=== PATIENT | female | born 1995 | race Caucasian/White ===

== ENCOUNTER → 2017-03-02 | Outpatient (REF) | payer OTHER ==
[~2017-03-02] MED LIST: BACT800T5 PO; PYRI1TAB5 PO
== END ==
LOC: M SFHCLERA 12:17
PROVIDERS: ATTEND Nurse Practitioner Family
DX: R53.81 Other malaise (principal)

== ENCOUNTER 2017-05-28 21:59 | Emergency (ER) | payer OTHER ==
[~2017-05-28] VITALS: Ht 157.5 cm; Wt 54.5 kg
[2017-05-28 23:01] LABS: CONTROL LINE UCG INT CTR LINE PRESENT
[2017-05-29] MEDS ORDERED: PYRI1TAB5 PO (01:38)
[2017-05-29] MEDS ORDERED: BACT800T5 PO (01:38)
[2017-05-29] MEDS ORDERED: BACTRIM 160MG/800MG DS TAB PO ONE (01:45)
[2017-05-29] MEDS ORDERED: PHENAZOPYRIDINE 100 MG TAB PO ONE (01:45)
[2017-05-29 02:00] VITALS: BP 115/65
== END 2017-05-29 02:03 | disposition home or self-care (01) ==
LOC: M ED 21:59
DX: N30.01 Acute cystitis with hematuria (principal)

== ENCOUNTER 2017-11-14 16:49 | Emergency (ER) | payer OTHER, SELFPAY ==
[2017-11-14 18:12] LABS: HEMATOCRIT 42.3 % (36.0-47.0); MEAN CORPUSCULAR HEMOGLOBIN 31.6 pg (27.0-33.0); MEAN CORPUSCULAR HGB CONC 35.5 g/dl (32.0-36.5); MEAN CORPUSCULAR VOLUME 89.2 fl (80.0-96.0); PLATELET COUNT, AUTOMATED 365 10^3/uL (150-450); RED BLOOD COUNT 4.74 10^6/uL (4.00-5.40); RED CELL DISTRIBUTION WIDTH 11.6 % (11.5-14.5); WHITE BLOOD COUNT 10.8 10^3/uL (4.0-10.0)
[2017-11-14 18:26] LABS: CONTROL LINE HCG INT CTR LINE PRESENT; HCG, SERUM QUALITATIVE NEGATIVE (NEGATIVE)
[2017-11-14 18:41] LABS: ALBUMIN 4.6 GM/DL (3.2-5.2); ALBUMIN/GLOBULIN RATIO 1.21 (1.00-1.93); ALKALINE PHOSPHATASE 66 U/L (45-117); ALT/SGPT 17 U/L (12-78); ANION GAP 8 MEQ/L (8-16); AST/SGOT 17 U/L (7-37); BILIRUBIN,DIRECT 0.2 MG/DL (0.0-0.2); BILIRUBIN,TOTAL 0.9 MG/DL (0.2-1.0); BLOOD UREA NITROGEN 12 MG/DL (7-18); CALCIUM LEVEL 9.4 MG/DL (8.5-10.1); CARBON DIOXIDE LEVEL 26 MEQ/L (21-32); CHLORIDE LEVEL 105 MEQ/L (98-107); CREATININE FOR GFR 0.76 MG/DL (0.55-1.30); GLOMERULAR FILTRATION RATE > 60.0 (>60); GLUCOSE, FASTING 72 MG/DL (70-100); SALICYLATE LEVEL < 1.7 MG/DL (5.0-30.0); SODIUM LEVEL 139 MEQ/L (136-145); THYROID STIMULATING HORMONE 0.875 uIU/ML (0.358-3.740); TOTAL PROTEIN 8.4 GM/DL (6.4-8.2)
[2017-11-14 18:42] LABS: ACETAMINOPHEN LEVEL < 2.0 UG/ML (10.0-30.0); ETHYL ALCOHOL (ETHANOL) < 0.003 % (0.000-0.010)
[2017-11-14 18:47] LABS: AMPHETAMINES LEVEL URINE NEGATIVE (NEGATIVE); BARBITURATES URINE NEGATIVE (NEGATIVE); BENZODIAZEPINES URINE NEGATIVE (NEGATIVE); CANNABINOIDS URINE NEGATIVE (NEGATIVE); COCAINE METABOLITE URINE NEGATIVE (NEGATIVE); METHADONE URINE NEGATIVE (NEGATIVE); OPIATES URINE NEGATIVE (NEGATIVE); PHENCYCLIDINE URINE NEGATIVE (NEGATIVE)
== END 2017-11-14 23:39 | disposition home or self-care (01) ==
LOC: M ED 16:49
DX: Z04.6 Encounter for general psychiatric examination, requested by authority (principal); F32.9 Major depressive disorder, single episode, unspecified; F90.9 Attention-deficit hyperactivity disorder, unspecified type; Z91.018 Allergy to other foods
CPT/HCPCS: 80320

== ENCOUNTER 2017-11-15 13:19 | Emergency (ER) | payer OTHER, SELFPAY ==
[2017-11-15 14:44] LABS: HEMOGLOBIN 15.2 g/dl (12.0-15.5); MEAN CORPUSCULAR HEMOGLOBIN 31.4 pg (27.0-33.0); MEAN CORPUSCULAR HGB CONC 35.3 g/dl (32.0-36.5); MEAN CORPUSCULAR VOLUME 88.8 fl (80.0-96.0); PLATELET COUNT, AUTOMATED 381 10^3/uL (150-450); RED BLOOD COUNT 4.84 10^6/uL (4.00-5.40); RED CELL DISTRIBUTION WIDTH 11.8 % (11.5-14.5); WHITE BLOOD COUNT 11.4 10^3/uL (4.0-10.0)
[2017-11-15 15:07] LABS: CONTROL LINE HCG INT CTR LINE PRESENT; HCG, SERUM QUALITATIVE NEGATIVE (NEGATIVE)
[2017-11-15 15:15] LABS: AMPHETAMINES LEVEL URINE NEGATIVE (NEGATIVE); BARBITURATES URINE NEGATIVE (NEGATIVE); BENZODIAZEPINES URINE NEGATIVE (NEGATIVE); CANNABINOIDS URINE NEGATIVE (NEGATIVE); COCAINE METABOLITE URINE NEGATIVE (NEGATIVE); METHADONE URINE NEGATIVE (NEGATIVE); OPIATES URINE NEGATIVE (NEGATIVE); PHENCYCLIDINE URINE NEGATIVE (NEGATIVE)
[2017-11-15 15:23] LABS: ACETAMINOPHEN LEVEL < 2.0 UG/ML (10.0-30.0); ALBUMIN 4.4 GM/DL (3.2-5.2); ALBUMIN/GLOBULIN RATIO 1.16 (1.00-1.93); ALKALINE PHOSPHATASE 65 U/L (45-117); ALT/SGPT 16 U/L (12-78); ANION GAP 6 MEQ/L (8-16); AST/SGOT 16 U/L (7-37); BILIRUBIN,DIRECT 0.2 MG/DL (0.0-0.2); BILIRUBIN,TOTAL 0.8 MG/DL (0.2-1.0); BLOOD UREA NITROGEN 10 MG/DL (7-18); CALCIUM LEVEL 9.3 MG/DL (8.5-10.1); CARBON DIOXIDE LEVEL 27 MEQ/L (21-32); CHLORIDE LEVEL 107 MEQ/L (98-107); CREATININE FOR GFR 0.77 MG/DL (0.55-1.30); ETHYL ALCOHOL (ETHANOL) < 0.003 % (0.000-0.010); GLOMERULAR FILTRATION RATE > 60.0 (>60); GLUCOSE, FASTING 98 MG/DL (70-100); POTASSIUM SERUM 3.7 MEQ/L (3.5-5.1); SALICYLATE LEVEL < 1.7 MG/DL (5.0-30.0); SODIUM LEVEL 140 MEQ/L (136-145); THYROID STIMULATING HORMONE 0.966 uIU/ML (0.358-3.740); TOTAL PROTEIN 8.2 GM/DL (6.4-8.2)
== END 2017-11-15 16:49 | disposition home or self-care (01) ==
LOC: M ED 13:19
DX: F43.0 Acute stress reaction (principal); F32.9 Major depressive disorder, single episode, unspecified
CPT/HCPCS: 80320

== ENCOUNTER 2017-12-12 15:20 | Inpatient (IN) | payer OTHER, SELFPAY ==
[2017-12-12 17:08] LABS: HEMATOCRIT 40.4 % (36.0-47.0); HEMOGLOBIN 14.2 g/dl (12.0-15.5); MEAN CORPUSCULAR HEMOGLOBIN 31.4 pg (27.0-33.0); MEAN CORPUSCULAR HGB CONC 35.1 g/dl (32.0-36.5); MEAN CORPUSCULAR VOLUME 89.4 fl (80.0-96.0); PLATELET COUNT, AUTOMATED 305 10^3/uL (150-450); RED BLOOD COUNT 4.52 10^6/uL (4.00-5.40); RED CELL DISTRIBUTION WIDTH 11.8 % (11.5-14.5); WHITE BLOOD COUNT 7.8 10^3/uL (4.0-10.0)
[2017-12-12 17:26] LABS: AMPHETAMINES LEVEL URINE NEGATIVE (NEGATIVE); BARBITURATES URINE NEGATIVE (NEGATIVE); BENZODIAZEPINES URINE NEGATIVE (NEGATIVE); CANNABINOIDS URINE NEGATIVE (NEGATIVE); COCAINE METABOLITE URINE NEGATIVE (NEGATIVE); METHADONE URINE NEGATIVE (NEGATIVE); OPIATES URINE NEGATIVE (NEGATIVE); PHENCYCLIDINE URINE NEGATIVE (NEGATIVE)
[2017-12-12 17:35] LABS: ALBUMIN 4.5 GM/DL (3.2-5.2); ALBUMIN/GLOBULIN RATIO 1.36 (1.00-1.93); ALKALINE PHOSPHATASE 62 U/L (45-117); ALT/SGPT 16 U/L (12-78); ANION GAP 7 MEQ/L (8-16); AST/SGOT 17 U/L (7-37); BILIRUBIN,DIRECT 0.2 MG/DL (0.0-0.2); BLOOD UREA NITROGEN 10 MG/DL (7-18); CALCIUM LEVEL 9.1 MG/DL (8.5-10.1); CARBON DIOXIDE LEVEL 26 MEQ/L (21-32); CHLORIDE LEVEL 107 MEQ/L (98-107); CREATININE FOR GFR 0.75 MG/DL (0.55-1.30); GLOMERULAR FILTRATION RATE > 60.0 (>60); GLUCOSE, FASTING 76 MG/DL (70-100); POTASSIUM SERUM 3.7 MEQ/L (3.5-5.1); SALICYLATE LEVEL < 1.7 MG/DL (5.0-30.0); SODIUM LEVEL 140 MEQ/L (136-145); THYROID STIMULATING HORMONE 0.615 uIU/ML (0.358-3.740); TOTAL PROTEIN 7.8 GM/DL (6.4-8.2)
[2017-12-12 17:58] LABS: ACETAMINOPHEN LEVEL < 2.0 UG/ML (10.0-30.0); ETHYL ALCOHOL (ETHANOL) < 0.003 % (0.000-0.010)
[2017-12-12 19:51] LABS: CONTROL LINE HCG INT CTR LINE PRESENT; HCG, SERUM QUALITATIVE NEGATIVE (NEGATIVE)
[2017-12-12] MEDS ORDERED: LORazepam 1 MG TAB PO (21:15)
[2017-12-12] MEDS ORDERED: ACETAMINOPHEN TAB 650MG DOSE (2X325MG) PO (21:15)
[2017-12-12] MEDS ORDERED: MAALOX 30 ML SUSP *UDC PO (21:15)
[2017-12-12] MEDS ORDERED: MOM 30ML SUSPENSION UDC PO (21:15)
[2017-12-12] MEDS ORDERED: traZODone 50 MG TAB PO (21:15)
[2017-12-13] MEDS: buPROPion **XL** TABLET 150MG (WELLBUTRIN XL) PO (10:34)
[2017-12-14] MEDS: buPROPion **XL** TABLET 150MG (WELLBUTRIN XL) PO (09:43)
== END 2017-12-14 13:15 | disposition home or self-care (01) | DRG 754 ==
LOC: M ED 15:20 → M ED INP 19:08 → M PSY 20:28
DX: F32.9 Major depressive disorder, single episode, unspecified (principal); Z91.018 Allergy to other foods

== ENCOUNTER 2018-01-20 21:55 | Emergency (ER) | payer OTHER, MEDICAID ==
[2018-01-20] MEDS: FLUCONAZOLE 50MG TABLET PO (23:45)
[2018-01-21 00:26] LABS: CHLAMYDIA DNA AMPLIFICATION NEGATIVE (NEGATIVE); GC DNA AMPLIFICATION NEGATIVE (NEGATIVE)
== END 2018-01-21 00:08 | disposition home or self-care (01) ==
LOC: M ED 01-21 00:08
DX: B37.3 Candidiasis of vulva and vagina (principal)
CPT/HCPCS: 87210

== ENCOUNTER → 2018-12-06 | Outpatient (REF) | payer OTHER, MEDICAID ==
[~2018-12-06] MED LIST changes: +BUPR150T3 PO; +LAMO25TA4 PO
== END ==
LOC: M LAB REF 17:45
PROVIDERS: ATTEND Advanced Practice Midwife
DX: Z12.4 Encounter for screening for malignant neoplasm of cervix (principal); Z11.3 Encounter for screening for infections with a predominantly sexual mode of transmission; N87.0 Mild cervical dysplasia

== ENCOUNTER → 2018-12-11 | Outpatient (REF) | payer OTHER, MEDICAID ==
[2018-12-11 19:45] LABS: CHLAMYDIA DNA AMPLIFICATION NEGATIVE (NEGATIVE); GC DNA AMPLIFICATION NEGATIVE (NEGATIVE)
== END ==
LOC: M LAB REF 17:00
PROVIDERS: ATTEND Advanced Practice Midwife
DX: Z11.3 Encounter for screening for infections with a predominantly sexual mode of transmission (principal)

== ENCOUNTER 2020-09-01 11:02 | Emergency (ER) | payer MEDICAID, OTHER ==
[~2020-09-01] VITALS: Ht 157.5 cm; Wt 63.0 kg
[~2020-09-01 11:02] MED LIST changes: -BUPR150T3 PO; +BUPR150T4 PO
[2020-09-01] MEDS ORDERED: SKYL13.5 IU (11:14)
[2020-09-01 11:55] LABS: BASO % 0.4 % (0.0-1.0); EOS # 0.1 10^3/uL (0.0-0.5); EOS % 1.4 % (0.0-3.0); HEMATOCRIT 40.5 % (36.0-47.0); HEMOGLOBIN 13.8 g/dl (12.0-15.5); LYMPH # 1.7 10^3/uL (1.5-5.0); LYMPH % 22.3 % (24.0-44.0); MEAN CORPUSCULAR HGB CONC 34.1 g/dl (32.0-36.5); MONO # 0.6 10^3/uL (0.0-0.8); MONO % 7.8 % (0.0-5.0); NEUTROPHILS # 5.2 10^3/uL (1.5-8.5); PLATELET COUNT, AUTOMATED 300 10^3/uL (150-450); RED BLOOD COUNT 4.45 10^6/uL (4.00-5.40); WHITE BLOOD COUNT 7.7 10^3/uL (4.0-10.0)
--- NOTE | 2020-09-01 12:58 | REP ---
INDICATION: + preg/IUD/bleeding. COMPARISON: None. TECHNIQUE: Transabdominal and transvaginal scanning or performed. FINDINGS: Uterus is retroverted. There is an IUD in place in the mid uterine endometrium. In the fundus, there is an intrauterine gestational sac containing a yolk sac and embryonic pole. [employer]-rump length of the embryonic pole is 6 mm. This corresponds with a gestational age estimate is 6 weeks 3 days. heart rate is recorded at 121 beats per minute. A small quantity of fluid is seen surrounding the IUD. There is a 2.62 cm right ovarian corpus luteum. No other extra uterine abnormality is observed. IMPRESSION: 1. Viable single intrauterine gestation at 6 weeks 3 days by crown-rump length. GENESIS by sonography 24 April 2021. 2. IUD in place adjacent to the sac in the uterine endometrium. There is a small quantity of fluid surrounding the IUD. <Electronically signed by Cristofer Reyes > 09/01/20 [id number]
[2020-09-01 13:55] VITALS: BP 124/59
== END 2020-09-01 13:57 | disposition home or self-care (01) ==
LOC: M ED 11:02
DX: O26.31 Retained intrauterine contraceptive device in pregnancy, first trimester (principal); Z3A.01 Less than 8 weeks gestation of pregnancy; Z91.018 Allergy to other foods

== ENCOUNTER 2020-09-12 19:20 | Emergency (ER) | payer OTHER ==
[~2020-09-12] VITALS: Ht 157.5 cm; Wt 62.7 kg
[~2020-09-12 19:20] MED LIST changes: +SKYL13.5 IU
[2020-09-12 20:09] LABS: HEMATOCRIT 38.8 % (36.0-47.0); HEMOGLOBIN 13.1 g/dl (12.0-15.5); MEAN CORPUSCULAR HEMOGLOBIN 30.8 pg (27.0-33.0); MEAN CORPUSCULAR HGB CONC 33.8 g/dl (32.0-36.5); MEAN CORPUSCULAR VOLUME 91.1 fl (80.0-96.0); PLATELET COUNT, AUTOMATED 327 10^3/uL (150-450); RED BLOOD COUNT 4.26 10^6/uL (4.00-5.40); WHITE BLOOD COUNT 12.7 10^3/uL (4.0-10.0)
--- NOTE | 2020-09-12 21:13 | REPVR ---
PROCEDURE INFORMATION: Exam: US , Transvaginal Exam date and time: 09/12/2020 7:46 PM Age: 24 years old Clinical indication: Lmp or gestational age (in weeks): 8w 1d; Other: Vaginal bleeding; Patient HX: Patient with known iud, bleeding occurring today TECHNIQUE: Imaging protocol: Real-time transvaginal obstetrical ultrasound of the maternal pelvis and a first trimester with image documentation. Transvaginal imaging was used for better evaluation of the fetus, adnexa, and/or cervix. COMPARISON: No relevant prior studies available. FINDINGS: Gestation: Single gestational sac demonstrated in the uterine fundus. Small yolk sac visualized. pole demonstrated measuring 14.9 mm. heart rate: cardiac activity identified measuring 167 bpm. BIOMETRY: Gestational age (AUA): Gestational age based on crown-rump length is 7 weeks 6 days in this patient with unknown menstrual dates. MATERNAL: Uterus: Of note an IUD is demonstrated within the endometrial cavity. IMPRESSION: Single living gestation at 7 weeks 6 days based on crown-rump length. As described above an IUD is demonstrated within the endometrial cavity. Electronically signed by: Sunil Delcid On 09/12/2020 21:14:07 PM
[2020-09-12 21:32] VITALS: BP 111/70
== END 2020-09-12 21:43 | disposition home or self-care (01) ==
LOC: M ED 19:20
DX: O20.0 Threatened abortion (principal); Z97.5 Presence of (intrauterine) contraceptive device; Z3A.01 Less than 8 weeks gestation of pregnancy; Z91.018 Allergy to other foods

== ENCOUNTER → 2020-10-14 | Outpatient (CLI) | payer OTHER ==
[~2020-10-14] MED LIST changes: +BUPR150T12 PO; -BUPR150T4 PO; +MULTTAB20 PO
--- NOTE | 2020-10-14 11:20 | REP ---
INDICATION: ,CK HEART,IUD MECHANICAL COMPLICATION COMPARISON: None. TECHNIQUE: Transabdominal obstetrical ultrasound with color Doppler evaluation. FINDINGS: Intrauterine with crown-rump length of 62 mm corresponds to 12 weeks 4 days gestational age. However, there is no motion or cardiac activity and findings are consistent with demise. Evaluation of the uterus demonstrates IUD in the left fundal portion of the uterus with surrounding heterogeneous material possibly reflecting collection such as abscess or hematoma. IMPRESSION: 1. Findings consistent with demise at 12 weeks 4 days age. 2. IUD identified towards the left fundal portion of the uterus with vague surrounding collection which may reflect hematoma or complex fluid. <Electronically signed by Bryan Bennett > 10/14/20 [id number]
== END ==
LOC: M WHC 10:09
PROVIDERS: ATTEND Obstetrics & Gynecology
DX: T83.39XA Other mechanical complication of intrauterine contraceptive device, initial encounter (principal)

== ENCOUNTER → 2020-10-14 | Outpatient (CLI) | payer OTHER | LOC: M WHC 09:56 | PROVIDERS: ATTEND Obstetrics & Gynecology | DX: Z53.9 Procedure and treatment not carried out, unspecified reason (principal); T83.39XA Other mechanical complication of intrauterine contraceptive device, initial encounter ==

== ENCOUNTER → 2020-10-14 | Outpatient (CLI) | payer OTHER | LOC: M LABSMTC 14:20 | PROVIDERS: ATTEND Anesthesiology | DX: Z01.812 Encounter for preprocedural laboratory examination (principal); Z20.822 Contact with and (suspected) exposure to COVID-19 ==

== ENCOUNTER 2020-10-15 10:22 | Day surgery (SDC) | payer OTHER ==
[~2020-10-15] VITALS: Ht 157.5 cm; Wt 64.4 kg
[~2020-10-15 10:22] MED LIST changes: -MULTTAB20 PO
[2020-10-15] MEDS ORDERED: DOXYCYCLINE HYCLATE 100MG TABLET PO ONE (10:35)
[2020-10-15 10:51] LABS: HEMATOCRIT 40.6 % (36.0-47.0); MEAN CORPUSCULAR HEMOGLOBIN 31.5 pg (27.0-33.0); MEAN CORPUSCULAR HGB CONC 34.5 g/dl (32.0-36.5); MEAN CORPUSCULAR VOLUME 91.2 fl (80.0-96.0); PLATELET COUNT, AUTOMATED 269 10^3/uL (150-450); RED BLOOD COUNT 4.45 10^6/uL (4.00-5.40); WHITE BLOOD COUNT 10.7 10^3/uL (4.0-10.0)
[2020-10-15] MEDS ORDERED: MULTTAB20 PO (10:51)
[2020-10-15] MEDS ORDERED: ONDANSETRON 4MG/2ML VIAL As Ordered ONE ×2 (12:21→13:41)
[2020-10-15] MEDS ORDERED: propofoL 200 MG/20 ML VIAL As Ordered ONE (12:35)
[2020-10-15] MEDS ORDERED: LIDOCAINE 2% 100MG/5ML SDV (FOR ANES.) As Ordered ONE (12:35)
[2020-10-15] MEDS ORDERED: MIDAZOLAM INJ 2MG/2ML VIAL (J2250 PER 1MG) As Ordered ONE (12:36)
[2020-10-15] MEDS ORDERED: fentaNYL 100 MCG/2 ML INJECTION (J3010) As Ordered ONE (12:36)
[2020-10-15] MEDS ORDERED: LIDOCAINE 1% SDV 30ML VIAL As Ordered ONE (12:46)
[2020-10-15] MEDS ORDERED: ONDANSETRON 4MG/2ML VIAL IV ONE (13:00)
[2020-10-15] MEDS ORDERED: SCOPOLAMINE 1MG TRANSDERMAL PATCH TOP STA (13:05)
[2020-10-15] MEDS ORDERED: SCOPOLAMINE 1MG TRANSDERMAL PATCH As Ordered ONE (13:11)
[2020-10-15] MEDS ORDERED: dexameTHASONE 4 MG/ML 1ML VIAL (J1100 PER 1MG) As Ordered ONE (13:41)
[2020-10-15] MEDS ORDERED: KETOROLAC 60MG 2ML VIAL As Ordered ONE (13:41)
[2020-10-15] MEDS ORDERED: ACETAMINOPHEN 1000MG 100ML IV BTL (OFIRMEV) (J0131 PER 10MG) As Ordered ONE (14:04)
[2020-10-15] MEDS ORDERED: fentaNYL 100 MCG/2 ML INJECTION (J3010) IV PRN (14:20)
[2020-10-15] MEDS ORDERED: ONDANSETRON 4MG/2ML VIAL IV PRN (14:20)
[2020-10-15] MEDS ORDERED: LR 1,000 ML IV SCH (14:20)
[2020-10-15] MEDS ORDERED: PERCOCET 5MG/325MG TAB PO PRN ×2 (14:20)
[2020-10-15 15:50] VITALS: BP 112/56
[2020-10-15] MEDS ORDERED: KETOROLAC 30 MG/ML 1ML VIAL IV SCH (20:00)
--- NOTE | 2020-10-15 23:58 | ROOPDOC ---
[facility] Report Of Operation Report of Operation DATE OF PROCEDURE: 10/15/20 PREOPERATIVE DIAGNOSIS: 1. Intrauterine embryonic demise. 2. Retained intrauterine device POSTOPERATIVE DIAGNOSES: 1. Intrauterine embryonic demise. 2. Retained intrauterine device PROCEDURE PERFORMED: 1. Dilation, extraction with suction and sharp curettage. 2. Intrauterine device removal SURGEON: Yanelis Bearden MD [employer] LAWYER: None. ANESTHESIA: General. ESTIMATED BLOOD LOSS 150 mL. INTRAVENOUS FLUIDS: 300 mL. URINE OUTPUT: Not obtained. PREOPERATIVE ANTIBIOTICS: 200 mg of doxycycline. OPERATIVE FINDINGS: Moderate amounts of tissue obtained with suction curetting. SPECIMENS: Intrauterine contents. DESCRIPTION OF OPERATION: After informed consent was obtained and written consent was reviewed, the patient was brought to the operating room where she was placed under general anesthesia. She was then placed in lithotomy position and was prepped and draped in a normal sterile fashion. A time-out in the operating room was then performed identifying the patient, procedure to be performed as well as drug allergies. A bivalve speculum was then placed revealing the cervix. The cervix was previously prepped laminaria which was removed. A Aliya was then inserted the cervical os and and she has device was removed The anterior lip of the cervix was grasped with a single-tooth tenaculum. The uterus was then sequentially dilated using Hegar dilators. A #12 curved curette was then advanced through the cervical os to the level of the fundus. It was attached to suction, suction was deployed, and the uterus was curetted in a 360-degree fashion with three passes with moderate amounts of tissue obtained. Sharp curette was then advanced through the cervical, and the uterus was sharply curetted in a 360-degree fashion. A final pass with the suction curette was performed productive of just minimum amounts of blood. Instruments were then removed from the patient's vagina. Single-tooth tenaculum was removed. Monsel's was applied over tenaculum sites for hemostatic. Speculum was removed. The patient was then taken out of the lithotomy position and was awakened from anesthesia and taken to recovery in stable condition. Counts were correct. YANELIS BEARDEN MD. Oct 15, 2020 23:58
== END 2020-10-15 16:06 | disposition home or self-care (01) ==
LOC: M SDC 10:22
PROVIDERS: ATTEND Obstetrics & Gynecology
DX: O02.1 Missed abortion (principal); Z30.432 Encounter for removal of intrauterine contraceptive device
CPT/HCPCS: 36415; 58301; 59820; 85027; 86850; 86900; 86901; 86920; 88305; J0131; J1100; J1885; J2250; J2405; J3010